=== PATIENT | male | born 1970 | race Caucasian/White ===

== ENCOUNTER 2016-10-17 10:48 | Emergency (ER) | payer MEDICARE ==
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
[2016-10-17 09:57] LABS: BLOOD UREA NITROGEN 7 mg/dL (9-23); BUN/CREATININE RATIO 5.83; CARBON DIOXIDE 21 mmol/L (22-31); CHLORIDE 99 mmol/L (100-111); CREATININE SERUM 1.2 mg/dL (0.6-1.4); GLOM FILT RATE Estimated ABOVE60 mL/min (>60); GLUCOSE FASTING 104 mg/dL (70-110); POTASSIUM 3.9 mmol/L (3.5-5.1); SODIUM 133 mmol/L (135-145)
[2016-10-17 09:58] LABS: ALCOHOL BLOOD 252 mg/dL (0)
[~2016-10-17 10:48] MED LIST: AMLODIPINE-BEN1 EAC4 PO; B-121000 MC1 PO; LOPID600 MG PO; METOPROLOL TAR100 MG PO; PAROXETINE HCL20 M1 PO
== END 2016-10-17 14:01 | disposition home or self-care (01) ==
LOC: CED 10:48
PROVIDERS: Emergency Medicine
DX: S06.0X9A Concussion with loss of consciousness of unspecified duration, initial encounter (principal); S02.32XA Fracture of orbital floor, left side, initial encounter for closed fracture; S02.40FA Zygomatic fracture, left side, initial encounter for closed fracture; F10.129 Alcohol abuse with intoxication, unspecified; S01.01XA Laceration without foreign body of scalp, initial encounter; Y04.2XXA Assault by strike against or bumped into by another person, initial encounter; Y92.009 Unspecified place in unspecified non-institutional (private) residence as the place of occurrence of the external cause; I10 Essential (primary) hypertension; E78.5 Hyperlipidemia, unspecified; F32.9 Major depressive disorder, single episode, unspecified
CPT/HCPCS: 12002; 36415; 70450; 70486; 80048; 99284; G0480

== ENCOUNTER 2016-10-22 11:43 | Emergency (ER) | payer MEDICARE | END 2016-10-22 12:03 | disposition home or self-care (01) | LOC: CFTX 11:43 | DX: Z48.02 Encounter for removal of sutures (principal); I10 Essential (primary) hypertension; F41.9 Anxiety disorder, unspecified; E78.5 Hyperlipidemia, unspecified; Z87.891 Personal history of nicotine dependence; Z79.899 Other long term (current) drug therapy | CPT/HCPCS: 99281 ==